=== PATIENT | female | born 1970 | race Caucasian/White ===

== ENCOUNTER 2023-08-19 19:18 | Emergency (ER) | payer BC, SELFPAY ==
[2023-08-19 19:31] VITALS: BP 184/87; PULSE 74; RESP 16; TEMP 36.8; O2SAT 100
[2023-08-19 19:32] VITALS: BP 184/87; PULSE 74; RESP 16; TEMP 36.8; O2SAT 100
--- NOTE | 2023-08-19 19:46 | ED.EXTPRO ---
HPI - Extremity Problem General Chief complaint: Extremity Problem,Nontraumatic Stated complaint: Arm pain Time Seen by Provider: 08/19/23 19:32 Source: patient Mode of arrival: ambulatory Limitations: no limitations History of Present Illness HPI Narrative: 52-year-old female presented for complaint of right upper arm pain. Onset last night, worsening throughout the day. Reports pain and decreased range of motion with any movement of the shoulder, rates up to 8/10 with movement. Unrelieved with NSAIDs. Denies injury. 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 Denies numbness, tingling, weakness of the extremity, or pain radiating to the hand. Patient does not have PCP. Related Data Allergies Allergy/AdvReac Type Severity Reaction Status Date / Time amoxicillin Allergy Unknown HIVES Verified 08/19/23 19:31 Review of Systems Review of Systems: CONSTITUTIONAL: Denies body aches, fever, chills EYES: Denies visual changes ENT: Denies rhinorrhea, congestion CARDIOVASCULAR: Denies chest pain, palpitations, or edema. RESPIRATORY: Denies cough or dyspnea. GASTROINTESTINAL: Denies abdominal pain, nausea, vomiting, or diarrhea. SKIN: Denies rash, itching, or wounds. MUSCULOSKELETAL: Reports right upper arm pain denies back pain, or myalgia. NEUROLOGIC: Denies headache, numbness, tingling, or weakness. PSYCH: Denies depression or anxiety. All systems reviewed & are unremarkable except as noted in HPI and below PMFSH Past Medical History Medical History (Updated 08/19/23 @ 19:54 by Livia Cole APRN) Patient denies medical problems Comments At time of signature, I have reviewed and agree with nursing past medical, surgical, social and family history unless otherwise noted. Please see nursing chart for further information. There is no relevant family history pertinent to the presenting complaint Exam Narrative: GENERAL: Well-appearing, and in no acute distress. CHEST: Speaks in full sentences. No respiratory distress. HEART: Regular rate and rhythm. Normal and equal peripheral pulses. EXTREMITIES: Reports pain to the right shoulder and upper arm. Guarding the right arm at rest. Decreased ROM at right shoulder due to pain, limited above approx 30 degrees in all directions; endorses pain with movement. Tender with palpation to anterior and medial aspects of deltoid, to lateral upper arm. No ecchymosis or erythema. Right Hand has normal strength and sensation, normal range of motion at elbow. No open wounds, skin tenting, or obvious deformity; alignment normal, pulse palpable and equal bilaterally, skin warm, dry, pink. Capillary refill less than 3 seconds. SKIN: Warm, dry, no rash. NEURO: Alert and oriented x3. PSYCH: Normal mood and affect Course Course Emergency Course: Patient is aware of diagnosis, understands and agrees to treatment plan. Anticipatory guidance given. Patient agrees to follow-up as directed and is aware of reasons to seek care at the emergency department. Portions of this record may have been created with voice recognition software Level of Care: Express Care Visit Vital Signs Vital signs: Vital Signs Temperature 98.2 F 08/19/23 19:31 Pulse Rate 74 08/19/23 19:31 Respiratory Rate 16 08/19/23 19:31 Blood Pressure 184/87 H 08/19/23 19:31 Pulse Oximetry 100 08/19/23 19:31 Temperature 98.2 F 08/19/23 19:32 Pulse Rate 74 08/19/23 19:32 Respiratory Rate 16 08/19/23 19:32 Blood Pressure 184/87 H 08/19/23 19:32 Pulse Oximetry 100 08/19/23 19:32 Reviewed MDM - Extremity (Nontraumatic) MDM Narrative Medical decision making narrative: Discussed physical exam findings. Reviewed Rxs. Provided ortho and PCP referral. Advised supportive measures and signs/symptoms to go to the ER. Pt is appropriate for outpt treatment and f/u. Discharge Plan Discharge Clinical Impression: Arm pain, right Patient Disposition: Home, Se
== END 2023-08-19 19:57 | disposition home or self-care (01) ==
PROVIDERS: Emergency Provider Nurse Practitioner Family
DX: M79.621 Pain in right upper arm (principal)
CPT/HCPCS: 99203; G0463

== ENCOUNTER 2024-12-05 19:28 | Emergency (ER) | payer OTHER, SELFPAY ==
[2024-12-05 19:39] VITALS: BP 165/96; PULSE 50; RESP 16; TEMP 36.6; O2SAT 100
--- NOTE | 2024-12-05 19:48 | ED.URI ---
HPI - URI/Sore Throat General Chief Complaint: Upper Respiratory Infection Stated Complaint: COUGH/RIB PAIN Time Seen by Provider: 12/05/24 19:50 Source: patient, RN notes reviewed and old records reviewed Mode of arrival: ambulatory Limitations: no limitations History of Present Illness HPI Narrative: Patient presents with 1 week history of runny nose and chest congestion. She reports that chest congestion is her biggest concern today. States that she has a cough that is becoming increasingly productive. States that sometimes she is coughing so hard that is difficult to catch her breath. She reports that she is aware that her blood pressure is typically quite elevated when she seeks medical care, the same is true today. She denies any chest pain or shortness of breath. Denies any dizziness. She also reports that her baseline heart rate is typically in the 50s. She has been taking [id number] medication for her symptoms with no relief. She denies any wheezing. Related Data Allergies Allergy/AdvReac Type Severity Reaction Status Date / Time amoxicillin Allergy Unknown HIVES Verified 12/05/24 19:57 Review of Systems Review of Systems: All systems reviewed & are unremarkable except as noted in HPI and below Constitutional: Constitutional: Reports no additional constitutional complaints, Reports chills, Reports difficulty sleeping and Reports lethargy ENT: Reports system reviewed and no additional complaints, except as documented and Reports nasal congestion Cardiovascular: Cardiovascular: Reports no additional cardiovascular complaints Respiratory: Respiratory: Reports no additional respiratory complaints, Reports change in phlegm color, Reports chest congestion, Reports cough and Reports excessive phlegm production Gastrointestinal: Gastrointestinal: Reports no additional gastrointestinal complaints [facility] Past Medical History Medical History (Updated 12/06/24 @ 00:01 by Background Daemon) Patient denies medical problems Comments At the time of my signature, I reviewed and agree with the nursing past medical, surgical, social, and family history. There is no relevant family history pertinent to the patient complaint. Exam Const: General: cooperative, no acute distress, alert and awake Orientation/consciousness: oriented to person, oriented to place and oriented to time HENMT: Head: normal to inspection Ears: TM's normal bilaterally Mouth: Yes moist mucous membranes Resp: Effort & Inspection: normal respiratory effort and able to speak in complete sentences Auscultation: clear to auscultation bilaterally, no crackles, no rales, no rhonchi, no wheezes and diminished lung sounds Other: Harsh barking cough Cardio: Palpation: normal PMI Rate: regular rate Rhythm: regular rhythm Heart sounds: S1 normal heart sound present and S2 normal heart sound present Neuro: General: oriented to person, oriented to place and oriented to time Cranial nerves: Yes CN's II-XII intact bilaterally Psych: Appearance: grossly normal Thought process: Normal thought process present Insight: Good insight present (Psych) Judgement: Good judgement present (Psych) Course Course Level of Care: Express Care Visit Vital Signs Vital signs: Vital Signs Temperature 97.8 F 12/05/24 19:39 Pulse Rate 50 L 12/05/24 19:39 Respiratory Rate 16 12/05/24 19:39 Blood Pressure 165/96 H 12/05/24 19:39 Pulse Oximetry 100 12/05/24 19:39 Temperature 97.8 F 12/05/24 19:39 Pulse Rate 50 L 12/05/24 19:39 Respiratory Rate 16 12/05/24 19:39 Blood Pressure 165/96 H 12/05/24 19:39 Pulse Oximetry 100 12/05/24 19:39 Reviewed MDM - URI/Sore Throat MDM Narrative Medical decision making narrative: Patient with no wheezing, but diminished lung sounds and harsh cough. Says that [id number] cough medicine is sufficient. Will start prednisone burst and azithromycin for added anti-inflammatory effect. She agrees to discuss blood pressure with primary care provider. Discharge instructions reviewed with patient, as well as provided in writing per nursing staff. The instructions also include specific and strict return/GO TO THE ER as well as f/u information. All questions have been answered, and the patient deny any further questions with discharge and discharge plan. Some parts of this dictation were generated by voice recognition software and may contain typographical and/or grammatical inaccuracies. Differential Diagnosis Differential diagnosis: Likely upper respiratory infection, croup, viral infection and bronchitis Medical Records Attestation: I reviewed the patient's medical records. Discharge Plan Discharge Clinical Impression: Bronchitis Patient Disposition: Home, Self-Care Condition: Stable Instructions: Antibiotic Form, Acute Bronchitis (ED) Additional Instructions: take medications as prescribed. Follow with primary care provider. emergency department for new or worse symptoms Patient Language: Nepalese Prescriptions: New azithromycin 250 mg tablet See Rx Instructions .ROUTE .COMPLEX Qty: 6 0RF Rx Instructions: For 250 mg dose pack: take 500 mg today (day 1), then 250 mg for 4 days (days 2-5) prednisone 50 mg tablet 50 mg PO DAILY Qty: 5 0RF No Action cyclobenzaprine 10 mg tablet 10 mg PO TID PRN (Reason: muscle spasm) Qty: 20 0RF methylprednisolone [Medrol (Nick)] 4 mg tablets,dose pack See Rx Instructions .ROUTE .COMPLEX Qty: 21 0RF Rx Instructions: orally per package directions Follow-up/Referrals: PHYSICIAN,ART HANDLER [Primary Care Provider] - Time of Disposition: 19:57
== END 2024-12-05 20:02 | disposition home or self-care (01) ==
PROVIDERS: Emergency Provider Nurse Practitioner Family
DX: J40 Bronchitis, not specified as acute or chronic (principal)
CPT/HCPCS: 99213; G0463